=== PATIENT | female | born 1970 | race Caucasian/White ===

== ENCOUNTER 2023-07-02 01:11 | Emergency (ER) | payer OTHER ==
[2023-07-02 01:19] VITALS: BP 188/105; PULSE 84; RESP 17; TEMP 98.9; BMI 36.6
== END 2023-07-02 02:09 | disposition home or self-care (01) ==
LOC: FER 01:11
PROC: 0HQMXZZ Repair Right Foot Skin, External Approach (ICD-10-PCS; principal; 2023-07-02)
DX: S91.311A Laceration without foreign body, right foot, initial encounter (principal); W26.0XXA Contact with knife, initial encounter
CPT/HCPCS: 73630-TC-RT-FY; 99283-25